=== PATIENT | male | born 1980 | race Caucasian/White ===

== ENCOUNTER 2018-01-22 20:33 | Emergency (ER) | payer SELFPAY ==
[~2018-01-22] VITALS: Ht 170.2 cm; Wt 72.6 kg
[~2018-01-22 20:33] MED LIST: AMIT50 PO; BACL20 PO; CLIN300 PO; DULO60; DULO60 PO; HYDACE5 PO; HYDGUAL120 PO; METO25ER PO; NAPR550 PO; OMEP20ER PO; RXCLIN PO; SULTRIDS PO; TRAM50 PO; TRIA80TC TOP
[2018-01-22] MEDS ORDERED: IBUP600 PO (21:56)
[2018-01-22] MEDS ORDERED: Norco 5-325 Ta1 EACH PO (21:56)
== END 2018-01-22 22:10 | disposition home or self-care (01) ==
LOC: ER 20:33
DX: S62.012A Displaced fracture of distal pole of navicular [scaphoid] bone of left wrist, initial encounter for closed fracture (principal); F17.200 Nicotine dependence, unspecified, uncomplicated; Z88.0 Allergy status to penicillin; Z88.1 Allergy status to other antibiotic agents; Z79.899 Other long term (current) drug therapy; X58.XXXA Exposure to other specified factors, initial encounter; Y09 Assault by unspecified means
CPT/HCPCS: 29125; 73110; 99283

== ENCOUNTER → 2023-01-13 | Outpatient (CLI) | payer SELFPAY ==
[~2023-01-13] MED LIST changes: +IBUP600 PO; +Norco 5-325 Ta1 EACH PO
== END | disposition home or self-care (01) ==
LOC: LAB SHORT 15:34 → LAB 15:34
DX: L02.92 Furuncle, unspecified (principal)
CPT/HCPCS: 87081